=== PATIENT | female | born 1980 | race Two or more races ===

== ENCOUNTER 2025-03-14 20:55 | Emergency (ER) | payer BC, SELFPAY ==
[2025-03-14 20:56] VITALS: BMI 22.1
--- NOTE | 2025-03-14 20:58 | EKG_ITS ---
[facility] Test Date: 2025-03-14 Pat Name: NATANAEL ROSA Department: Room: - Gender: Female Room Service Waiter/Waitress: : 1980 Requested By: ED Temporary Provider Order Number: [id number] Reading MD: ED Temporary Provider Measurements Intervals [place] Rate: 78 P: 75 KS: 149 QRS: 79 QRSD: 86 T: 81 QT: 378 QTc: 432 Interpretive Statements SINUS RHYTHM No previous ECG available for comparison /store/S0/[id number]/ecg/[id number].pdf
[2025-03-14 21:11] VITALS: BP 136/87; PULSE 78; RESP 20; TEMP 37.1; O2SAT 97
--- NOTE | 2025-03-14 21:11 | XR_ITS ---
Examination: PA chest single view The vertebrae. Chest single view Date and time: March 14, 2025 2119 hours INDICATIONS: Chest measures about the day. FINDINGS: Normal heart size. Lungs are clear. The osseous structures are intact IMPRESSION: No active disease
--- NOTE | 2025-03-14 21:11 | EDNOTE_ITS ---
ED Chest Pain RME/HPI General Chief Complaint: Chest Pain Stated Complaint: BACK AND CHEST PAIN Time Seen by Provider: 03/14/25 20:58 Arrival date/time: 03/14/25 20:55 Limitations: no limitations RME / HPI RME / HPI narrative: 44-year-old female with no chronic medical history is here today with a 4-hour history of central/lower chest pain that described as a sharp pain that radiates to her mid back. She denies any lower leg edema. She has no syncope. She denies any abdominal pain, nausea, vomiting. She states she does feel short of breath with this. She has no history of asthma. She denies any history of ACS, lung disease, or heart disease. No recent traveling or surgeries. She has no other acute complaints. Related Data Previous Rx's ?Medication ?Instructions ?Recorded ondansetron 4 mg disintegrating 4 mg PO Q12H PRN nause a and 02/17/23 tablet vomiting #4 tabs dicyclomine 20 mg tablet 20 mg PO QID PRN abdominal p ain 03/15/25 #20 tabs ondansetron HCl 4 mg tablet 4 mg PO Q6H PRN nausea and 03/15/25 vomiting #20 tabs Allergies Allergy/AdvReac Type Severity Reaction Status Date / Time ceftriaxone sodium Allergy Severe Nausea Verified 03/14/25 20:55 Penicillins Allergy Mild Nausea Verified 03/14/25 20:55 amoxicillin Allergy Unknown RASH Verified 03/14/25 20:55 hydrocodone AdvReac Severe Vomiting Verified 03/14/25 20:55 Review of Systems Review of Systems Systems Reviewed: All systems reviewed, normal except as documented ED Exam General Limitations: Present no limitations General appearance: Present alert Head Head exam: Present atraumatic Eye Eye exam: Present normal appearance, PERRL and EOMI ENT ENT exam: Present normal exam, normal oropharynx and mucous membranes moist Neck Neck exam: Present normal inspection, full ROM and trachea midline Chest Chest inspection: Present normal inspection and symmetric chest wall rise Respiratory Respiratory exam: Present normal lung sounds bilaterally; Absent respiratory distress, wheezes, stridor or accessory muscle use Cardiovascular Cardiovascular exam: Present regular rate, normal rhythm and normal heart sounds Abdominal Exam Abdominal exam: Present soft and normal bowel sounds Extremities Exam Extremities exam: Present normal inspection and full ROM Back Exam Back exam: Present normal inspection and full ROM Neurological Exam Neurological exam: Present alert, oriented X3 and CN II-XII intact Psychiatric Psychiatric exam: Present normal affect and normal mood Skin Skin exam: Present warm, dry, intact and normal color Course Quality Measures none Orders Category Date Time Status CT Screening NOW Care 03/14/25 22:55 Completed EKG (ED ONLY) *Do not use* NOW Care 03/14/25 20:58 Completed NPO NOW Care 03/14/25 22:58 Completed Diet NPO (NOW) Diet 03/14/25 22:[address] abdomen pelvis w con Stat Exams 03/14/25 22:55 Completed EKG (ED Only) Stat Exams 03/14/25 20:58 Draft US gall bladder Stat Exams 03/14/25 23:01 Completed XR chest 1V Stat Exams 03/14/25 21:11 Completed Alcohol, Blood Medical Stat Lab 03/14/25 21:26 Completed BNP [B-Type Natriuretic Peptide] Stat Lab 03/14/25 21:26 Completed CBC Stat Lab 03/14/25 21:26 Completed CMP [Comprehensive Metabolic Panel] Stat Lab 03/14/25 21:26 Completed D-Dimer Stat Lab 03/14/25 21:26 Completed Drug Screen,Urine Stat Lab 03/14/25 22:52 Completed Lactic Acid [Lactate (Lactic Acid)] Stat Lab 03/14/25 23:10 Completed Lipase Stat Lab 03/14/25 21:26 Completed Lipid Panel Stat Lab 03/14/25 23:10 Completed Mag [Magnesium] Stat Lab 03/14/25 21:26 Completed Mag [Magnesium] Stat Lab 03/14/25 23:10 Completed Troponin I Stat Lab 03/14/25 21:26 Completed UA, C/S IF [Urinalysis, C/S if Indicated] Stat Lab 03/14/25 22:52 Completed Aspirin Med 03/14/25 21:44 Discontinued 324 mg PO X1 ONE Aspirin Chew Med 03/14/25 21:11 Discontinued 324 mg PO X1 ONE Aspirin Chew Med 03/14/25 21:11 Discontinued 325 mg PO X1 ONE Morphine Inj Med 03/14/25 22:55 Discontinued 4 mg IVP X1 ONE Ondansetron Inj [Zofran Inj] Med 03/14/25 22:55 Discontinued 4 mg IVP X1 ONE Sodium Chloride 0.9% 1000 ml [Ns] 1,000 ml Med 03/14/25 22:58 Discontinued IV 999 mls/hr Vital Signs Vital signs: Vital Signs Temperature 98.8 F 03/14/25 21:11 Pulse Rate 78 03/14/25 21:11 Respiratory Rate 20 03/14/25 21:11 Blood Pressure 136/87 H 03/14/25 21:11 Pulse Oximetry (%) 97 03/14/25 21:11 Oxygen Delivery Method Room Air 03/14/25 21:11 Chest Pain MDM Narrative MDM Narrative:: 44-year-old female with no chronic medical history is here today with a 4-hour history of central/lower chest pain that described as a sharp pain that radiates to her mid back. She denies any lower leg edema. She has no syncope. She denies any abdominal pain, nausea, vomiting. She states she does feel short of breath with this. She has no history of asthma. She denies any history of ACS, lung disease, or heart disease. No recent traveling or surgeries. She has no other acute complaints. She denies any smoking history. No alcohol abuse. Does not use any illicit drugs. On exam, patient is uncomfortable. But nontoxic-appearing. Vital signs are stable. Heart tones are unremarkable. She had very mild tenderness at the epigastrium, abdominal dam was otherwise unremarkable. She had no CVA tenderne ss there is no lower leg edema. Patient initially declined pain medication. She then later agreed to having a dose of aspirin while her workup was initiated. Workup reveals leukocytosis 16.7 K, hemoglobin hematocrit unremarkable. Metabolic panel reveals no abnormalities. Her lipase is 1319. Troponin is negative. Patient is brought back to exam room and further workup was initiated. Her test results were discussed. At this time patient was agreeable to a dose of morphine and Zofran. Will keep her NPO. Case signed out to attending ER physician, Dr. Toro at shift change. Patient data External records reviewed:: None Clinical information provided by:: patient Social determinants that could affect healthcare access:: none Patient has the following chronic illnesses:: n/a How is presenting disease/condition affected by chronic disease/condition?: uneffected by Evaluation data The following diagnostics were reviewed and interpreted by me:: lab results (Leukocytosis 16.7 K, metabolic panel is unremarkable. Lipase is elevated at 1319.) and EKG tracing(s) (NSR with no ST changes or dynamic t-waves. ) Lab and/or radiology exams considered but not ordered:: n/a Interpretation Summary: Elevated lipase, likely nonalcoholic pancreatitis, further workup is pending. Medications / Prescriptions Medications or Prescriptions considered but not ordered:: n/a Medication administrations:: Medication Administration History Discontinued Medications Aspirin (Aspirin 81 Mg Chew) 325 mg PO X1 ONE Stop: 03/14/25 21:12 Last Admin: 03/14/25 21:44 Dose: Not Given Documented By: ASIF Non-Admin Reason: Cancelled by Provider Aspirin (Aspirin 325 Mg Tablet) 324 mg PO X1 ONE Stop: 03/14/25 21:45 Last Admin: 03/14/25 21:59 Dose: Not Given Documented By: MORENITA Non-Admin Reason: Discontinued Aspirin (Aspirin 81 Mg Chew) 324 mg PO X1 ONE Stop: 03/14/25 21:12 Last Admin: 03/14/25 22:02 Dose: 324 mg Documented By: MORENITA Sodium Chloride (Ns) 1,000 mls @ 999 mls/hr IV .Q1H1M ONE Stop: 03/14/25 23:58 Last Infusion: 03/15/25 00:56 Dose: Infused Documented By: Admin: 03/14/25 23:17 Dose: 999 mls/hr Documented By: ASIF Morphine Sulfate (Morphine Sulf Inj 10 Mg/Ml Vial) 4 mg IVP X1 ONE Stop: 03/14/25 22:56 Last Admin: 03/14/25 23:17 Dose: 4 mg Documented By: ASIF Ondansetron HCl (Ondansetron Inj 2 Mg/Ml Inj 2 Ml) 4 mg IVP X1 ONE; Protocol Stop: 03/14/25 22:56 Last Admin: 03/14/25 23:17 Dose: 4 mg Documented By: ASIF see above Consultations Consultation(s) initiated? (list below): No Diagnosis Chest Pain Differential Diagnosis: other Most likely diagnosis given after review of the tests above:: n/a Admission Indicated Admission indicated?: not indicated Admission Request Was there a request for admission?: No Disposition Plan Disposition Plan: other (specify) (pending ) Discharge Plan Plan Patient Disposition: HOME (Self Care) Patient condition on transfer: Stable Prescriptions/Referrals Prescriptions/Med Rec: New dicyclomine 20 mg tablet 20 mg PO QID PRN (Reason: abdominal pain) Qty: 20 0RF ondansetron HCl 4 mg tablet 4 mg PO Q6H PRN (Reason: nausea and vomiting) Qty: 20 0RF No Action ondansetron 4 mg tablet,disintegrating 4 mg PO Q12H PRN (Reason: nausea and vomiting) Qty: 4 0RF Referrals: Oscar Connelly MD [Primary Care Provider] - In 1 week Problem List Clinical Impression: Acute epigastric pain, Elevated lipase Patient/Caregiver Discharge Instructions Additional Instructions: Clear liquid diet and advance as tolerated. Medications as prescribed. Follow- up with your doctor. Return to ER as needed or if condition worsens. Print Language: Bulgarian Stand Alone Forms: Em Award Info., Patient Portal Info Letter
[2025-03-14 21:38] LABS: Basophils # (Auto) 0.1 Thou/mm3 (0.0-0.2); Basophils % (Auto) 1 % (0-2.5); Eosinophils # (Auto) 1.2 Thou/mm3 (0.0-0.5); Eosinophils % (Auto) 7 % (0-10); Hematocrit 37.5 % (36.0-46.0); Hemoglobin 12.9 g/dL (12.0-16.0); Immature Granulocytes Auto 0.07 Thou/mm3 (0.00-0.00); Lymphocytes # (Auto) 4.3 Thou/mm3 (1.0-4.8); Lymphocytes % (Auto) 25 % (10-50); Mean Corpuscular HGB Conc 34.4 g/dl (31.0-37.0); Mean Corpuscular Hemoglobin 30.6 pg (25.0-35.0); Mean Corpuscular Volume 89 fL (80-100); Monocytes # (Auto) 1.1 Thou/mm3 (0.0-0.8); Monocytes % (Auto) 7 % (0-12); Neutrophils # (Auto) 10.0 Thou/mm3 (1.8-7.7); Neutrophils % (Auto) 60 % (37-80); Nucleated Red Blood Cell # 0.00 Thou/mm3 (0.00-0.00); Nucleated Red Blood Cell % 0 /100 WBC (0); Platelet Count 381 Thou/mm3 (140-440); RDW Standard Deviation 41.2 fL (36.4-46.3); Red Blood Count 4.22 Miln/mm3 (4.00-5.20); White Blood Count 16.7 Thou/mm3 (3.6-11.0)
[2025-03-14 21:58] LABS: B-Type Natriuretic Peptide < 20 pg/mL (0-100); D-Dimer 297 ng/mL (<600)
[2025-03-14 22:02] LABS: Albumin, Serum 4.2 gm/dL (3.5-5.0); Albumin/Globulin Ratio 1.7 (1.2-2.2); Alkaline Phosphatase 85 U/L (46-116); Anion Gap 10 (7-16); Aspartate Amino Transferase 14 U/L (0-34); BUN/Creatinine Ratio 15 Ratio (12-20); Blood Urea Nitrogen 12 mg/dL (9-23); Calcium 10.0 mg/dL (8.3-10.6); Calcium (Corrected) 10.0 mg/dL (8.5-10.1); Carbon Dioxide 22.4 mMol/L (20.0-31.0); Chloride 107 mMol/L (98-107); Creatinine (Component) 0.8 mg/dL (0.6-1.3); Estimated Creatinine Clearance 77.5 mL/min (>60); Globulin 2.5 gm/dL (2.3-3.5); Glucose 97 mg/dL (74-106); Magnesium 1.9 mg/dL (1.6-2.6); Osmolality,Calculated 277 (275-295); Potassium 3.6 mMol/L (3.4-5.1); Sodium 139 mMol/L (136-145); Total Protein 6.7 gm/dL (5.7-8.2); Troponin I < 0.002 ng/mL (0.0-0.045); eGFR > 60 See Note
[2025-03-14] MEDS: ASPIRIN 81 MG CHEW 324 MG PO (22:02)
[2025-03-14 22:21] LABS: Alanine Aminotransferase 8 U/L (10-49); Bilirubin,Total < 0.2 mg/dL (0.3-1.2); Lipase 1319 U/L (12-53)
--- NOTE | 2025-03-14 22:55 | XR_ITS ---
Examination: CT abdomen with intravenous contrast CT pelvis with intravenous contrast 2-D coronal reconstructions 2-D sagittal reconstructions Date and time of exam:March 14, 2025 11:28 PM INDICATIONS:. Abdominal pain with elevated lipase today. CTDI: vol (mGy) 6.18 DLP: (mGycm) 324 Technique: Multiple axial sections of the abdomen and pelvis have been obtained. 64 slice high-resolution scanner used. 3 mm axial sections have been obtained, post intravenous injection 60 cc Isovue 370. 2-D sagittal, coronal reconstructions obtained. Low dose protocols were performed. One or more of the following dose reduction techniques were used; automated exposure control, adjustment of the mA and/or KV according to patient size, use of iterative reconstruction technique. Findings: No focal liver or splenic lesion No gallstones No pancreatic edema No renal or ureteral calculi, no hydronephrosis Aorta normal size 8 mm fat-containing umbilical hernia Normal appendix A retroverted uterus with satisfactory position intrauterine device No bladder mass Osseous structures intact IMPRESSION: No CT findings of pancreatitis pancreatitis Normal appendix No bowel obstruction diverticulitis or free air
[2025-03-14 23:00] VITALS: BP 121/87; PULSE 81; RESP 15; TEMP 36.7; O2SAT 98
[2025-03-14 23:01] LABS: Alcohol, Blood Medical < 3.0 mg/dL (0-10.0)
--- NOTE | 2025-03-14 23:01 | XR_ITS ---
Examination: Abdomen sonogram, Limited Date and time of exam: March 14, 2025 1107 hours INDICATIONS: Right upper abdominal pain with nausea beginning 6 hours ago Technique: Real-time stern scale transabdominal sonographic images of the upper abdomen obtained. Findings: Contracted gallbladder no stones Normal gallbladder wall Common bile duct 0.5 cm Pancreatic head 2.8 cm Liver 13.1 cm Normal hepatopedal portal venous flow Patent IVC IMPRESSION: Normal gallbladder No common bile duct stones
[2025-03-14 23:12] LABS: Collection Type, Urine Voided
[2025-03-14 23:15] LABS: Bilirubin,Urine Negative (Negative); Blood,Urine Negative (Negative); Clarity,Urine Clear (Clear/Hazy); Color,Urine Colorless (Lt Yel-Yel); Culture Indicated,Urine Not Indicated; Glucose, Urine Negative (Negative); Ketones,Urine Negative (Negative); Leukocyte Esterase,Urine Negative (Negative); Nitrite,Urine Negative (Negative); PH,Urine 7.0 (5.0-7.0); Protein,Urine Negative (Neg - Trace); RBC,Urine 2 /hpf (0-3); Specific Gravity,Urine 1.010 (1.001-1.035); Squamous Epithelial Cell,Urine 1 /hpf (0-5); Urobilinogen,Urine Negative mg/dL (0.0-1.0); WBC,Urine 1 /hpf (0-5)
[2025-03-14] MEDS: ONDANSETRON INJ 2 MG/ML INJ 2 ML 4 MG IVP (23:17)
[2025-03-14] MEDS: SODIUM CHLORIDE 0.9% 1000 ML 1,000 ML 999 ML IV (23:17)
[2025-03-14] MEDS: MORPHINE SULF INJ 10 MG/ML VIAL 4 MG IVP (23:17)
[2025-03-14 23:21] LABS: Lactate (Lactic Acid) 0.9 mMol/L (0.4-2.0)
[2025-03-14 23:22] LABS: Amphetamine/Methamp Scrn,U Negative (Negative); Barbiturate Screen,Urine Negative (Negative); Benzodiazepines Screen,Urine Negative (Negative); Benzoylecgonine Screen, Ur Negative (Negative); Fentanyl Screen,Urine Negative (Negative); Opiate Screen,Urine Negative (Negative); THC Screen,Urine Negative (Negative)
[2025-03-14 23:44] LABS: Cardiac Risk Estimate 4.8 RATIO (3.7-5.6); Cholesterol 173 mg/dL (132-200); HDL Cholesterol 36 mg/dL (40-60); LDL Cholesterol,Calculated 114 mg/dL (0-130); Magnesium 1.9 mg/dL (1.6-2.6); Triglycerides 117 mg/dL (30-150)
--- NOTE | 2025-03-15 00:23 | PD.EDADDENDU ---
Emergency Room Addendum Addendum Narrative: Case is signed out to me awaiting CT scan of the abdomen and pelvis with IV contrast and gallbladder ultrasound. Gallbladder ultrasound showed no gallstones and no evidence of cholecystitis. CT scan done of the abdomen and pelvis with IV contrast showed no acute disease process. No inflammation of the gallbladder. Patient does not drink alcohol. Is hard to say whether patient's lipase is somewhat elevated. I went in to reevaluate the patient and the patient is in completely stable condition. She is essentially pain-free at this time. She was given dietary instructions to have clear liquid diet and advance as tolerated. Bentyl and Zofran to be taken as prescribed. She does have primary care follow-up.
[2025-03-15 00:40] VITALS: RESP 17
== END 2025-03-15 00:57 | disposition home or self-care (01) ==
PROVIDERS: Physician Assistant Medical; Emergency Provider Emergency Medicine; PCP Family Medicine
DX: R10.13 Epigastric pain (principal); R74.8 Abnormal levels of other serum enzymes
CPT/HCPCS: 36415; 71045; 74177; 76705; 80053; 80061; 80307; 80320; 81001; 83605; 83690; 83735; 83880; 84484; 85025; 85379; 93005; 96361; 96374; 96375; 99283; A4649; J2270; J2405; J7030; Q9967; A9270; G0480